=== PATIENT | female | born 1975 | race Caucasian/White ===

== ENCOUNTER → 2021-07-26 | Outpatient (CLI) | payer SELFPAY ==
--- NOTE | 2021-07-26 10:30 | EMB_PTH ---
PATIENT: ESTEBAN COOK LOC: [facility] U#:[id number] AGE/SX: 45/F ROOM: RE07/26/[address]: Dr. Zacarias Yu MD : 1975 BED: DIS: 07/26/2021 SPEC #: [id number] RECD: 07/26/21 12:58 STATUS: JAZMIN ABBY #: [id number] GREGORIO: 07/26/21 10:[address]: Zacarias Yu DEPT: SURGICAL PATHOLOGY RECD BY: Yaz Clark Tissues: Endometrium, NOS Procedures: Surgery Specimen Level IV HEADER OPERATION: Endometrial biopsy PRE-OP DIAGNOSIS: Abnormal uterine bleeding TISSUE SUBMITTED: Endometrial biopsy MICROSCOPIC DIAGNOSIS Endometrial biopsy: A few fragments of proliferative endometrium with glandular and stromal breakdown and blood clots. See comment. PRADIP:aamir 07/27/2021 COMMENT The specimen predominantly consists of blood clots. Clinical correlation and appropriate follow up are necessary. MICROSCOPIC DESCRIPTION Slides are reviewed. GROSS DESCRIPTION Received in fixative is one container labeled with the patient's name and designated endometrial biopsy. The specimen consists of multiple fragments of hemorrhagic soft tissue mixed with blood clots that in aggregate measure 2.5 x 1.5 x 0.2 cm. The specimen is totally submitted in one cassette. / SJ:rg 07/26/2021 TC:5 [facility]: [id number]
== END | disposition home or self-care (01) ==
LOC: WOBLAB 10:59
PROVIDERS: Visit Provider Obstetrics & Gynecology
DX: N93.9 Abnormal uterine and vaginal bleeding, unspecified (principal)
CPT/HCPCS: 88305

== ENCOUNTER 2021-09-03 06:51 | Day surgery (SDC) | payer SELFPAY, OTHER ==
[2021-09-03] VITALS (9 sets, daily range): BP systolic 91–113; BP diastolic 61–65; PULSE 52–72; RESP 16–18; TEMP 36.2–36.7; O2SAT 95–100; BMI 25.0
--- NOTE | 2021-09-03 07:03 | PCM.HP.BLA ---
History and Physical Date of Admission: 09/03/21 Surgical History and Physical Date: 09/03/2021 Name: ESTEBAN ESQUEDA Age: 45 Date of : 1975 Esteban Esqueda, a 45 year old female 6 0 2 1 6, presents for Hysteroscopy D&C, Polypectomy, possible symphion on 09/03/21 at . -- Esteban is here for hysteroscopy D&C, polypectomy, possible symphion. Consents signed. MEDICATIONS HISTORY: Patient is also takin. No Meds ALLERGIES: No Known Drug Allergies Hospitalizations - Childbirth Review of Systems: GENERAL - Denies fever, or chills SKIN - Denies skin changes EYES - Denies visual changes EARS - Denies difficulty hearing NOSE - Denies nasal congestion or bleeding MOUTH - Denies sore throat or difficulty swallowing NECK - Denies pain or swelling RESPIRATORY - Denies shortness of breath or wheezing CARDIOVASCULAR - Denies palpitations or chest pain GASTROINTESTINAL - Denies nausea, vomiting, diarrhea, constipation GENITOURINARY - Denies dysuria, frequency of urination, incontinence of urine MUSCULOSKELETAL - Denies joint or muscle pain NEUROLOGICAL - Denies localized numbness or weakness PSYCHIATRIC - Denies depression or anxiety ENDOCRINE - Denies heat or cold intolerance, weight loss or gain HEMATO-IMMUNOLOGIC - Denies excessive bleeding with cuts SOCIAL HISTORY: Alcohol Use - denies drinking Smoking - denies smoking Diet - no special diet Exercise - active Employer - stay home Illicit Drug Use - denies use of street drugs Sexual Activity - Spouse-Sig Other Name - Geremias Spouse-Sig Other Occupation - [employer] Children Name(s) - 6 children Control - none FAMILY HISTORY: MENSTRUAL HISTORY: LMP Known?- DefiniteAmount/Duration - 7 days, Regularity - Irregular, LMP - 07/22/21, Age Onset Menarche - 14 PAST PREGNANCIES: Total Pregnancies - 7; Full Term Pregnancies - 6; Premature - 0; Abortions, Induced - 0; Abortions, Spontaneous - 2; Ectopics - 0; Multiple Births - 1; Living Children - 6 SURGICAL HISTORY: 1. , 2005, 2015 ; - 2. 11/30/2010 repeat ; Bassam Lindsay M.D. - 3. 10/20/2008 repeat ; Bassam Lindsay M.D. - PHYSICAL EXAM BP- 108/72 Sitting, Right arm, regular cuff Weight- 145.17948 lbs Height- 64.5 inch BMI:[id number] CONSTITUTIONAL - NAD, well nourished, and well developed SKIN - No rash, lesions, or ulcers HEENT - Normocephalic, PERRLA, EOMI NECK - No nodes, no nuchal rigidity and thyroid normal size and texture LYMPH NODES - Palpation of lymph nodes in neck and groins within normal limits ABDOMEN - Without hepatosplenomegaly, distention, masses, rebound, or guarding; normal bowel sounds; no hernias EXTREMITIES - No edema or calf tenderness NEUROLOGICAL - Cranial nerves II-XII grossly intact PSYCHIATRIC - A and O to time, place, person, mood and affect External Genital Vagina - non-tender without lesions Urethra/Urethral Meatus - non-tender Bladder - non-tender Vagina - vaginal richards are pink and moist without loss of rugae and no evidence of atrophy Cervix - without cervical motion tenderness and has normal size and features without evident lesions Uterus - 5-6 cm in size, mobile and nontender Adnexa - clear without masses or tenderness ASSESSMENT/PLAN: 1. Abnormal Uterine And Vaginal Bleeding, Unspecified Patient arrives as referral for AUB. Patient had SAB 10/2020 then AUB since. Recently with normal cycle EMB negative. Educated patient on findings. Discussed treatment options expectant management versus surgical management. Patient elects for surgical management To schedule for hysteroscopy, dilation curettage, polypectomy, possible Symphion Follow-up preoperatively
[2021-09-03 07:29] LABS: Internal QC Validated? YES +Cl - CLEAR BKGD; Pregnancy, Urine Negative Negative
[2021-09-03] MEDS: Lactated Ringers 1,000 ML 15 ML IV (07:37)
--- NOTE | 2021-09-03 08:35 | EMB_PTH ---
PATIENT: ESTEBAN COOK LOC: [facility] U#:[id number] AGE/SX: 45/F ROOM: RE09/03/[address]: Dr. Zacarias Yu MD : 1975 BED: DIS: 09/03/2021 SPEC #: [id number] RECD: 09/03/21 09:23 STATUS: JAZMIN MORA #: [id number] GREGORIO: 09/03/21 08:[address]: Zacarias Yu DEPT: SURGICAL PATHOLOGY RECD BY: Yaz Clark ENTERED: 09/03/21 11:54 SP TYPE: ENDOM BX/C SURI DR: Dr. Bassam Barreto MD Tissues: Endometrium, NOS Procedures: Surgery Specimen Level IV HEADER OPERATION: Hysteroscopy, D & C, polypectomy, Symphion PRE-OP DIAGNOSIS: Abnormal uterine and vaginal bleeding TISSUE SUBMITTED: Endometrial curettings and polyp MICROSCOPIC DIAGNOSIS Endometrial curettings and polyp: Secretory endometrium. Fragments of myometrium. SJ:aamir 09/04/2021 MICROSCOPIC DESCRIPTION Slides are reviewed. GROSS DESCRIPTION Received in fixative is one container labeled with the patient's name and designated endometrial curettings and polyp. The specimen consists of multiple irregular fragments of turner-pink to focally hemorrhagic tissue that in aggregate measure 3 x 2.5 x 0.3 cm. The specimen is totally submitted in one cassette. / PRADIP:aamir 09/03/2021 TC:4 CPT: 25406
--- NOTE | 2021-09-03 08:55 | PCM.DC ---
Discharge Instructions Diet Discharge Diet: No restrictions Activity Discharge Activity: Return to Normal Activity, May Drive and May Shower May resume sexual activity in: 4-6 weeks Weight Bearing Status: Weight bearing as tolerated Dressing / Incision Call your doctor if your incision/area has: Continuous Slow Oozing and Foul Smelling Discharge Call your doctor if you observe: Fever of 101 or Higher, Shortness of breath and Chest pain Follow Up Care Please Follow Up With: Zacarias Yu MD When: follow up 2-4 weeks Test Results: Test results from this visit will be discussed in further detail at your follow-up appointment, if applicable. Discharge Plan Admission Attending Provider: Zacarias uY Primary Care Provider: Bassam Barreto Discharge Orders/Prescriptions Prescriptions: No Action [place] 3 Capsule 1,000 mg PO TID cholecalciferol (vitamin D3) [Vitamin D3] 25 mcg (1,000 unit) Tablet,Chewable 25 mcg PO DAILY magnesium citrate 85 mg Tablet,Chewable 85 mg PO DAILY Dietry Supplement 2 tab PO/SL DAILY Referrals / Follow Up: Bassam Barreto MD [Primary Care Provider] - Disposition Disposition (needs filled in before D/C Order can be placed): Home, Self Care
--- NOTE | 2021-09-03 08:55 | PCM.OPRPT ---
Report of Operation Date of Procedure: 09/03/21 Pre-Operative Diagnosis: Abnormal uterine bleeding, suspected uterine polyp Post-Operative Diagnosis: Abnormal uterine bleeding, uterine polyp Surgery/Procedure Performed:: Hysteroscopy, dilation and curettage, polypectomy via Symphion Description of Surgical Findings:: Surgeon: Zacarias Yu MD Anesthesia: MAC EBL: 5 cc Urine output: 25 cc none IV fluids: 500 cc Complications: None Specimen: Endometrial curettings Findings: Uterus with anterior fundal 2 cm uterine polyp. Otherwise no pathology noted. Fluid deficit 600 cc Consent: Patient with abnormal uterine bleeding and suspected uterine polyp elects for hysteroscopy, dilation curettage, polypectomy via Symphion. Patient understands risk of the procedure include but are not limited to visceral or vascular injury, prolonged hospitalization, blood loss need for transfusion, reoperation. Patient state understanding and wished to proceed. All questions were answered and consent was signed. Procedure: Patient brought back to the OR where MAC anesthesia was found to be adequate. Patient was prepared and draped in a dorsolithotomy position with yellowfin stirrups. Weighted speculum placed in the posterior aspect of the vagina and cervical dilators were used to dilate the cervix. Hysteroscope was inserted and above findings were noted. Using Symphion device polypectomy was performed and sent to pathology. Also using Symphion all quadrant curettage was performed and sent to pathology. Good hemostasis was noted. All counts were correct x2. Patient tolerated the procedure well and was brought to recovery in stable condition.
== END 2021-09-03 10:57 | disposition home or self-care (01) ==
LOC: SDC 06:57 → AC 06:57
PROVIDERS: Anesthesiology; PCP Family Medicine; Referring Provider Obstetrics & Gynecology; Visit Provider Obstetrics & Gynecology
PROC: 0UB98ZZ Excision of Uterus, Via Natural or Artificial Opening Endoscopic (ICD-10-PCS; CPT 58558; principal; 2021-09-03 08:20)
DX: N84.0 Polyp of corpus uteri (principal); N93.9 Abnormal uterine and vaginal bleeding, unspecified
CPT/HCPCS: 58558; 00952; 81025; 88305; J7120; J2405